=== PATIENT | male | born 1980 | race Caucasian/White ===

== ENCOUNTER 2016-07-31 16:51 | Emergency (ER) | payer OTHER ==
[2016-07-31 17:18] VITALS: BP 149/95; PULSE 88; RESP 18; TEMP 98.6; O2SAT 95
--- NOTE | 2016-07-31 17:19 | UCPHY ---
H & P Patient Type: New Chief Complaint Nursing Narrative: cough and sore throat x 2 days HPI/ROS: HPI CHIEF COMPLAINT: Cough, sore throat, bilateral ear pain HISTORY OF PRESENT ILLNESS: the patient very pleasant 36-year-old male, denies any significant medical surgical history presents to the urgent care with 3 days of sore throat, bilateral ear pain, runny nose and nonproductive cough. His main complaint this evening is sore throat. Denies fever, vomiting diarrhea chest pain or shortness of breath. Past Medical History: Denies any medical history Past Surgical History: denies significant surgical history Social History: daily tobacco use, denies drugs or alcohol Family History: noncontributory ROS REVIEW OF SYSTEMS: A comprehensive 10 point review of systems is otherwise negative aside from elements mentioned in the history of present illness. Exam Constitutional triage nursing summary reviewed, vital signs reviewed, awake/ alert. Eyes normal conjunctivae and sclera, EOMI, PERRLA. HENT bilateral TMs are erythematous and bulging, posterior pharynx is erythematous there is white spots on bilateral tonsillar beds, no significant swelling, uvula midline, no signs of TELEVISION ENGINEER, RPA, Adriel's, palate normal,, moist mucus membranes, no epistaxis, neck supple/ no meningismus, no raccoon eyes. Respiratory clear to auscultation bilaterally, normal breath sounds, no respiratory distress, no wheezing. Cardiovascular rate normal, regular rhythm, no murmur, no edema, distal pulses normal. Gastrointestinal soft, non-tender, no rebound, no guarding, normal bowel sounds, no distension, no pulsatile mass. Genitourinary no CVA tenderness. Musculoskeletal no midline vertebral tenderness, full range of motion, no calf swelling, no tenderness of extremities, no meningismus, good pulses, neurovascularly intact. Skin pink, warm, & dry, no rash, skin atraumatic. Neurologic awake, alert and oriented x 3, AAOx3, moves all 4 extremities equally, motor intact, sensory intact, CN II-XII intact, normal cerebellar, normal vision, normal speech. Psychiatric normal mood/affect. Heme/Lymph/Immune no lymphadenopathy. Differential Diagnosis: includes but is not limited to in a particular order, upper respiratory tract infection, viral syndrome, strep pharyngitis, viral pharyngitis Medical Decision Making: this patient appears to have strep clinically on exam with erythematous tonsillar beds with exudate, bilateral ear pain dry cough. Rapid strep is been sent. However patient be placed on Decadron, ibuprofen, guaifenesin and azithromycin. He understands if he has worsening symptoms high fever, vomiting worsening throat pain return to the urgent care or emergency room. Source: Patient - Medical/Surgical History Other PMH: denies - Family History Significant Family History: No pertinent family hx - Social History Smoking Status: Current every day smoker Constitutional: Initial Vital Signs Temperature (C) 37 C 07/31/16 17:16 Heart Rate 88 07/31/16 17:16 Respiratory Rate 18 07/31/16 17:16 Blood Pressure 149/95 H 07/31/16 17:16 O2 Sat (%) 95 07/31/16 17:16 O2 Delivery Mode Room Air Allergies/Adverse Reactions: acetaminophen [From Vicodin] Allergy (Verified 07/31/16 17:16) hydrocodone bitartrate [From Vicodin] Allergy (Verified 07/31/16 17:16) Home Medications: Medication Instructions Recorded AZITHROMYCIN [Z-PACK] 250 mg PO DAILY #6 tab 07/31/16 Dexamethasone [Decadron 4 MG (*)] 4 mg PO DAILY #4 tab 07/31/16 Guaifenesin [Guaifenesin ER] 600 mg PO BID #14 tab.er.12h 07/31/16 Ibuprofen [Motrin (*)] 800 mg PO Q6-8PRN #7 tab 07/31/16 predniSONE 60 mg PO DAILY #15 tab 07/31/16 Medical Decision Making - Data Points Laboratory Results: 07/31/16 17:20 Group A Strep Screen Pending Departure - Departure Disposition: Home, Routine, Self-Care Clinical Impression: Pharyngitis Qualifiers: Pharyngitis/tonsillitis etiology: unspecified etiology Qualified Code(s): J02.9 - Acute pharyngitis, unspecified Condition: Good Instructions: Pharyngitis (ED) Additional Instructions: 1. Stay well-hydrated drink lots of fluids. 2. take your prescriptions as prescribed. Referrals: NONE *PRIMARY CARE P,. [Primary Care Provider] - As per Instructions Prescriptions: AZITHROMYCIN [Z-PACK] 250 mg PO DAILY #6 tab Dexamethasone [Decadron 4 MG (*)] 4 mg PO DAILY #4 tab Guaifenesin [Guaifenesin ER] 600 mg PO BID #14 tab.er.12h Ibuprofen [Motrin (*)] 800 mg PO Q6-8PRN #7 tab predniSONE 60 mg PO DAILY #15 tab - PQRS PQRS Measurement: n/a
== END 2016-07-31 18:07 | disposition home or self-care (01) ==
LOC: CED 16:51
DX: J02.9 Acute pharyngitis, unspecified (principal); R05 Cough; H92.03 Otalgia, bilateral; Z72.0 Tobacco use
CPT/HCPCS: 87880-PO; 99204-PO; G0463-PO